=== PATIENT | female | born 1990 ===

== ENCOUNTER 2016-06-24 19:11 | Emergency (ER) | payer MEDICAID ==
[2016-06-24 19:11] VITALS: BMI 36.1
[2016-06-24 19:37] VITALS: TEMP 99.5; O2SAT 100
--- NOTE | 2016-06-24 20:24 | ED PDOC ---
Arrival/HPI - General Chief Complaint: Syncope Time Seen by Provider: 06/24/16 19:53 Historian: Patient - History of Present Illness Narrative History of Present Illness (Text): 06/24/16 20:15 A 25 year old female with , who is 3 months , presents to the emergency department complaining of a brief syncopal episode prior to arrival. Patient states she felt faint while sitting on a bench with her friends. Friend reports patient leaned against her shoulder and loss consciousness for only a few seconds. Once patient regained consciousness she ate a banana and felt "100 % better". Patient presented to the emergency room to get checked out. Patient denies any fever, chills, nausea, vomiting, diarrhea, abdominal pain, urinary symptoms, vaginal discharge, vaginal bleeding, chest pain, shortness of breath or any other complaints. Time/Duration: Prior to Arrival Symptom Course: Resolved Quality: Other Context: Other Past Medical History - Provider Review Nursing Documentation Reviewed: Yes - Infectious Disease Hx of Infectious Diseases: None - Reproductive Menopause: No - Cardiac Hx Cardiac Disorders: No - Genitourinary/Gynecological Other/Comment: PCOS - Psychiatric Hx Anxiety: Yes Hx Substance Use: No - Anesthesia Hx Anesthesia: No Hx Anesthesia Reactions: No Hx Malignant Hyperthermia: No Family/Social History - Physician Review Nursing Documentation Reviewed: Yes Family/Social History: No Known Family HX Smoking Status: Never Smoked Hx Alcohol Use: No Hx Substance Use: No Allergies/Home Meds Allergies/Adverse Reactions: Allergies No Known Allergies Allergy (Verified 06/24/16 19:37) Home Medications: Home Meds Medication Instructions Recorded Confirmed No Known Home Med 06/24/16 06/24/16 Review of Systems - Physician Review All systems were reviewed & negative as marked: Yes - Review of Systems Constitutional: absent: Fevers, Night Sweats Respiratory: absent: SOB Cardiovascular: Syncope. absent: Chest Pain Gastrointestinal: absent: Abdominal Pain, Diarrhea, Nausea, Vomiting Genitourinary Female: absent: Dysuria, Frequency, Hematuria, Urine Output Changes, Vaginal Bleeding, Vaginal Discharge Physical Exam Vital Signs Reviewed: Yes Vital Signs Temp Pulse Resp BP Pulse Ox 06/24/16 21:23 84 18 119/61 100 06/24/16 19:32 99.5 F 96 H 16 117/80 100 Temperature: Afebrile Blood Pressure: Normal Pulse: Tachycardic Respiratory Rate: Normal Appearance: Positive for: Well-Appearing, Non-Toxic, Comfortable Pain Distress: None Mental Status: Positive for: Alert and Oriented X 3 Finger Stick Blood Glucose: 128 - Systems Exam Head: Present: Atraumatic, Normocephalic Pupils: Present: PERRL Extroacular Muscles: Present: EOMI Conjunctiva: Present: Normal Mouth: Present: Moist Mucous Membranes Pharnyx: Present: Normal. No: ERYTHEMA, EXUDATE Neck: Present: Normal Range of Motion Respiratory/Chest: Present: Clear to Auscultation, Good Air Exchange. No: Respiratory Distress, Accessory Muscle Use Cardiovascular: Present: Regular Rate and Rhythm, Normal S1, S2. No: Murmurs Abdomen: Present: Normal Bowel Sounds. No: Tenderness, Distention, Peritoneal Signs Back: Present: Normal Inspection Upper Extremity: Present: Normal Inspection, NORMAL PULSES. No: Cyanosis, Edema Lower Extremity: Present: Normal Inspection, NORMAL PULSES. No: Edema, CALF TENDERNESS Neurological: Present: GCS=15, CN II-XII Intact, Speech Normal, Motor Func Grossly Intact, Normal Sensory Function, Normal Cerebellar Funct Skin: Present: Warm, Dry, Normal Color. No: Rashes Psychiatric: Present: Alert, Oriented x 3, Normal Insight, Normal Concentration Medical Decision Making ED Course and Treatment: 06/24/16 20:14 Impression: A 25 year old female presented after brief syncopal episode. Symptoms resolved immediately, patient is asymptomatic and denies any complaints. Plan: -- EKG -- Labs -- Reassess and disposition Prior Visits: Notes and results from previous visits were reviewed. Patient last seen in the ED on 05/06/16 for abdominal pain and threatened . Progress Notes: EKG shows NSR at 83 BPM with normal intervals, normal EKG. Interpreted by me. 06/24/16 22:40 On re-evaluation, the patient feels better and is in no acute distress. I have discussed the results and plan with the patient, who expresses understanding. Patient in agreement with plan to discharged home. Patient is stable for discharge. Patient was instructed to follow up with physician/clinic in 1-2 days or return if symptoms worsen or new concerning symptoms arise. - Lab Interpretations Lab Results: 06/24/16 20:23 06/24/16 20:23 Lab Results 06/24/16 20:23: WBC 10.4 D, RBC 4.96, Hgb 13.0, Hct 38.4, MCV 77.4 L, MCH 26.2 , MCHC 33.9, RDW 14.2, Plt Count 368, MPV 9.0 06/24/16 20:23: Sodium 135, Potassium 3.8, Chloride 98, Carbon Dioxide 24, Anion Gap 17, BUN 9, Creatinine 0.4 L, Est GFR ( Amer) > 60, Est GFR (Non -Af Amer) > 60, Random Glucose 72, Calcium 9.1, Total Bilirubin 0.5, AST 21, ALT 33, Alkaline Phosphatase 53, Lactate Dehydrogenase 471, Total Creatine Kinase 25 L, Troponin I < 0.01, Total Protein 7.3, Albumin 3.8, Globulin 3.4, Albumin/Globulin Ratio 1.1 I have reviewed the lab results: Yes - Scribe Statement The provider has reviewed the documentation as recorded by the Consueloibmeche Ross Provider Scribe Attestation: All medical record entries made by the Scribe were at my direction and personally dictated by me. I have reviewed the chart and agree that the record accurately reflects my personal performance of the history, physical exam, medical decision making, and the department course for this patient. I have also personally directed, reviewed, and agree with the discharge instructions and disposition. Disposition/Present on Arrival - Present on Arrival Any Indicators Present on Arrival: No History of DVT/PE: No History of Uncontrolled Diabetes: No Urinary Catheter: No History of Decub. Ulcer: No History Surgical Site Infection Following: None - Disposition Have Diagnosis and Disposition been Completed?: Yes Diagnosis: Vaso vagal episode Disposition: HOME/ ROUTINE Disposition Time: 22:40 Patient Plan: Discharge Patient Problems: Current Active Problems Problem Status Onset Vaso vagal episode Acute Condition: STABLE Discharge Instructions (ExitCare): Syncope (ED) Additional Instructions: Maintain proper diet/proper rest/no strenuous physical activity/follow up with your doctor this week Forms: WORK NOTE
[2016-06-24 20:34] LABS: HEMATOCRIT 38.4 % (36.0-48.0); MEAN CELL VOLUME 77.4 fL (80.0-105.0); MEAN CORPUSCULAR HEMOGLOBIN 26.2 pg (25.0-35.0); MEAN CORPUSCULAR HGB CONC 33.9 g/dl (31.0-37.0); RED CELL DISTRIBUTION WIDTH 14.2 % (11.5-14.5); WHITE BLOOD COUNT 10.4 10^3/ul (4.5-11.0)
[2016-06-24 20:46] LABS: ALB/GLOB RATIO 1.1 (1.1-1.8); ALKALINE PHOSPHATASE 53 U/L (38-133); ALT/SGPT 33 U/L (7-56); AST/SGOT 21 U/L (15-39); BILIRUBIN,TOTAL 0.5 mg/dL (0.2-1.3); BLOOD UREA NITROGEN 9 mg/dL (7-21); CALCIUM 9.1 mg/dL (8.4-10.5); CARBON DIOXIDE 24 mmol/L (21-33); CHLORIDE 98 mmol/L (98-107); GFR AFRICAN-AMERICAN > 60; GLUCOSE,RANDOM 72 mg/dL (70-110); POTASSIUM 3.8 mmol/L (3.6-5.0); SODIUM 135 mmol/L (132-148); TOTAL PROTEIN 7.3 g/dL (5.8-8.3)
[2016-06-24 20:58] LABS: TROPONIN I < 0.01 ng/mL
[2016-06-24 21:27] VITALS: BP 119/61; PULSE 84; RESP 18
--- NOTE | 2016-06-25 21:51 | CARD ---
APPROVED REPORT EKG Measurement Heart [id number] <Conclusion> Normal sinus rhythm Normal ECG
== END 2016-06-24 23:10 | disposition home or self-care (01) ==
LOC: ED 19:11
DX: O26.891 Other specified pregnancy related conditions, first trimester (principal); Z3A.12 12 weeks gestation of pregnancy; R55 Syncope and collapse

== ENCOUNTER 2016-08-05 08:55 | Emergency (ER) | payer MEDICAID ==
[2016-08-05 08:56] VITALS: BMI 36.1
[2016-08-05 09:17] VITALS: TEMP 98; O2SAT 99
[2016-08-05] MEDS ORDERED: Sodium Chloride 0.9% 1,000 ML IV STA (09:27)
--- NOTE | 2016-08-05 09:34 | ED PDOC ---
Arrival/HPI - General Historian: Patient - General Chief Complaint: Female Genitourinary Time Seen by Provider: 08/05/16 09:20 - History of Present Illness Narrative History of Present Illness (Text): 08/05/16 09:28 25yo female present to ED for hematuria. states her LMP was April 06. She notes that she noticed a single blood clot with her urination last night and noticed 3today. states she is not bleeding. She sees OB in [place]. She denies abdominal pain, nausea, vomiting, diarrhea, constipation, dysuria, fever, chills. (Cristofer Larkin A) Past Medical History - Provider Review Nursing Documentation Reviewed: Yes - Infectious Disease Hx of Infectious Diseases: None - Cardiac Hx Cardiac Disorders: No - Genitourinary/Gynecological Hx Genitourinary Disorders: No Other/Comment: PCOS - Psychiatric Hx Psychophysiologic Disorder: Yes Hx Anxiety: Yes Hx Substance Use: No - Anesthesia Hx Anesthesia: No Hx Anesthesia Reactions: No Hx Malignant Hyperthermia: No Family/Social History - Physician Review Nursing Documentation Reviewed: Yes Family/Social History: Unknown Family HX Smoking Status: Never Smoked Hx Alcohol Use: No Hx Substance Use: No Allergies/Home Meds Allergies/Adverse Reactions: Allergies No Known Allergies Allergy (Verified 08/05/16 09:17) Home Medications: Home Meds Medication Instructions Recorded Confirmed Vit No.126/Iron/Folic 1 each PO DAILY 08/05/16 08/05/16 [Classic Tablet] Review of Systems - Physician Review All systems were reviewed & negative as marked: Yes - Review of Systems Constitutional: Normal Eyes: Normal ENT: Normal Respiratory: Normal Cardiovascular: Normal Gastrointestinal: Normal. absent: Abdominal Pain, Constipation, Diarrhea, Hematemesis Genitourinary Female: Hematuria. absent: Dysuria, Frequency, Vaginal Bleeding Musculoskeletal: Normal Skin: Normal Neurological: Normal Endocrine: Normal Hemo/Lymphatic: Normal Psychiatric: Normal Physical Exam Vital Signs Reviewed: Yes Temperature: Afebrile Blood Pressure: Normal Pulse: Regular Respiratory Rate: Normal Appearance: Positive for: Well-Appearing, Non-Toxic, Comfortable Pain Distress: None Mental Status: Positive for: Alert and Oriented X 3 - Systems Exam Head: Present: Atraumatic, Normocephalic Pupils: Present: PERRL Extroacular Muscles: Present: EOMI Conjunctiva: Present: Normal Mouth: Present: Moist Mucous Membranes Neck: Present: Normal Range of Motion Respiratory/Chest: Present: Clear to Auscultation, Good Air Exchange. No: Respiratory Distress, Accessory Muscle Use Cardiovascular: Present: Regular Rate and Rhythm, Normal S1, S2. No: Murmurs Abdomen: Present: Normal Bowel Sounds. No: Tenderness, Distention, Peritoneal Signs, Rebound, Guarding, McBurney's Point Tender, Rovsing's Sign Present Back: Present: Normal Inspection Upper Extremity: Present: Normal Inspection. No: Cyanosis, Edema Lower Extremity: Present: Normal Inspection. No: Edema Neurological: Present: GCS=15, CN II-XII Intact, Speech Normal Skin: Present: Warm, Dry, Normal Color. No: Rashes Psychiatric: Present: Alert, Oriented x 3, Normal Insight, Normal Concentration Vital Signs Temp Pulse Resp BP Pulse Ox 08/05/16 12:30 71 18 114/75 99 08/05/16 11:29 75 18 112/79 99 08/05/16 09:14 98.0 F 78 19 114/81 99 Medical Decision Making ED Course and Treatment: I was available for consultation during PA evaluation. The chart was reviewed by me, and I agree with disposition. The documented history was done by the physician sieve grader tender. The documented physical exam was done by the physician sieve grader tender. The documented procedures were done by the physician sieve grader tender. (Jesse Stoddard) 08/05/16 20:55 PT was comfortable in ED. She denied vaginal bleeding. Had UTI and was treated with Macrobid. age US - IUP at 18wks 6days Result was DW the pt. She was referred to her OB. TRT ED for any new or worsening symptoms. (Cristofer Lakrin) - Lab Interpretations Lab Results: 08/05/16 09:50 08/05/16 09:50 Lab Results 08/05/16 09:50: Beta HCG, Quant 54764.00 H 08/05/16 09:50: Sodium 138, Potassium 3.5 L, Chloride 105, Carbon Dioxide 24, Anion Gap 13, BUN 9, Creatinine 0.4 L, Est GFR ( Amer) > 60, Est GFR (Non -Af Amer) > 60, Random Glucose 84, Calcium 8.9, Total Bilirubin 0.3, AST 20, ALT 25, Alkaline Phosphatase 58, Total Protein 6.7, Albumin 3.4, Globulin 3.2, Albumin/Globulin Ratio 1.1 08/05/16 09:50: Urine Color Yellow, Urine Appearance Sl cloudy, Urine pH 6.5, Ur Specific [place] 1.020, Urine Protein Negative, Urine Glucose (UA) Negative, Urine Ketones Negative, Urine Blood Negative, Urine Nitrate Positive H, Urine Bilirubin Negative, Urine Urobilinogen 0.2, Ur Leukocyte Esterase Negative, Urine RBC Negative, Urine WBC 1 - 3, Ur Epithelial Cells 3 - 4, Urine Bacteria Many, Urine HCG, Qual Positive 08/05/16 09:50: PT 10.2, INR 0.94, APTT 30.6 08/05/16 09:50: WBC 8.4, RBC 4.43, Hgb 11.7 L, Hct 35.4 L, MCV 79.9 L, MCH 26.4 , MCHC 33.1, RDW 13.9, Plt Count 343, MPV 8.9, Gran % 58.5, Lymph % (Auto) 34.9 , [place] % (Auto) 5.5, Eos % (Auto) 1.0 L, Baso % (Auto) 0.1, Gran # 4.89, Lymph # 2.9, [place] # 0.5, Eos # 0.1, Baso # 0.01 - RAD Interpretation Radiology Orders: 08/05/16 10:25 AGE [US] Stat - Medication Orders Current Medication Orders: Discontinued Medications Sodium Chloride (Sodium Chloride 0.9%) 1,000 mls @ 999 mls/hr IV .Q1H1M STA Stop: 08/05/16 10:27 Last Admin: 08/05/16 10:04 Dose: 999 mls/hr Nitrofurantoin Macrocrystals (Macrobid) 100 mg PO ONCE STA Stop: 08/05/16 12:33 Disposition/Present on Arrival - Present on Arrival Any Indicators Present on Arrival: No History of DVT/PE: No History of Uncontrolled Diabetes: No Urinary Catheter: No History of Decub. Ulcer: No History Surgical Site Infection Following: None - Disposition Have Diagnosis and Disposition been Completed?: Yes Disposition Time: 12:35 Patient Plan: Discharge - Disposition Diagnosis: UTI (urinary tract infection) Disposition: HOME/ ROUTINE Condition: STABLE Discharge Instructions (ExitCare): Urinary Tract Infection in Women (ED), Return to Work Instructions (ED) Additional Instructions: Follow up with your OB Return to ED for any new or worsening symptoms Prescriptions: Nitrofurantoin Macrocrystals [Macrobid] 100 mg PO BID #14 cap Referrals: Gilberto Garcia, [Primary Care Provider] - Follow up with primary Forms: WORK NOTE
[2016-08-05 09:59] LABS: ADD MANUAL DIFF? NO
[2016-08-05 10:06] LABS: BASO # 0.01 K/mm3 (0.0-2.0); BASO % 0.1 % (0.0-3.0); EOS # 0.1 (0.0-0.7); GRAN # 4.89 (1.4-6.5); GRAN % 58.5 % (50.0-68.0); HEMATOCRIT 35.4 % (36.0-48.0); LYMPH # 2.9 (1.2-3.4); LYMPH % 34.9 % (22.0-35.0); MEAN CELL VOLUME 79.9 fL (80.0-105.0); MEAN CORPUSCULAR HEMOGLOBIN 26.4 pg (25.0-35.0); MEAN CORPUSCULAR HGB CONC 33.1 g/dl (31.0-37.0); MEAN PLATELET VOLUME 8.9 fl (7.0-11.0); MONO # 0.5 (0.1-0.6); MONO % 5.5 % (1.0-6.0); PLATELET COUNT 343 10^3/uL (120.0-450.0); RED CELL DISTRIBUTION WIDTH 13.9 % (11.5-14.5); WHITE BLOOD COUNT 8.4 10^3/ul (4.5-11.0)
[2016-08-05 10:08] LABS: PH,URINE 6.5 (4.7-8.0); URINE BILIRUBIN NEGATIVE (NEGATIVE); URINE BLOOD NEGATIVE (NEGATIVE); URINE GLUCOSE (UA) NEGATIVE (NEGATIVE); URINE KETONE NEGATIVE (NEGATIVE); URINE LEUKOCYTE ESTERASE NEGATIVE Leu/uL (NEGATIVE); URINE PROTEIN NEGATIVE mg/dL (<30 mg/dL); URINE UROBILINOGEN 0.2 E.U./dL (<1 E.U./dL)
[2016-08-05 10:10] LABS: URINE APPEARANCE SL CLOUDY (CLEAR); URINE COLOR YELLOW (YELLOW)
[2016-08-05 10:13] LABS: ALB/GLOB RATIO 1.1 (1.1-1.8); ALKALINE PHOSPHATASE 58 U/L (38-133); ALT/SGPT 25 U/L (7-56); AST/SGOT 20 U/L (15-39); BILIRUBIN,TOTAL 0.3 mg/dL (0.2-1.3); BLOOD UREA NITROGEN 9 mg/dL (7-21); CALCIUM 8.9 mg/dL (8.4-10.5); CARBON DIOXIDE 24 mmol/L (21-33); CHLORIDE 105 mmol/L (98-107); GFR AFRICAN-AMERICAN > 60; GLUCOSE,RANDOM 84 mg/dL (70-110); POTASSIUM 3.5 mmol/L (3.6-5.0); SODIUM 138 mmol/L (132-148); TOTAL PROTEIN 6.7 g/dL (5.8-8.3); URINE BACTERIA MANY (NEG); URINE RBC NEGATIVE /hpf (0-2)
[2016-08-05 10:14] LABS: INR 0.94 (0.93-1.08); PARTIAL THROMBOPLASTIN TIME 30.6 Seconds (23.7-30.8)
[2016-08-05 11:30] VITALS: RESP 18
--- NOTE | 2016-08-05 12:27 | US ---
PROCEDURE: OB Pelvic Ultrasound HISTORY: vaginal bleeding COMPARISON: None available. FINDINGS: UTERUS: There is a single intrauterine fetus in cephalic presentation. BPD: 4.1 cm corresponds to 18 weeks and 4 days of gestational age. HC cm corresponds to 18 weeks and 1 day of gestational age. AC: 13.3 cm corresponds to 18 weeks and 5 days of gestational age. FL: 2.84 CM corresponds to 18 weeks and 5 days of gestational age. Heart rate: 142 bpm. age (Ultrasound estimated): 18 weeks and 4 days Ceci-gestational hemorrhage: None. Date of delivery (Ultrasound estimated) : 01/02/2017 Placenta is anterior. CERVIX: Long and closed. Measures 4.5 cm. No cervical abnormality seen. RIGHT OVARY: Not visualized. LEFT OVARY: Not visualized. FREE FLUID: None. OTHER FINDINGS: None. IMPRESSION: Single live intrauterine fetus in cephalic presentation with mean gestational age of 18 weeks and 4 days. Estimated date of delivery by ultrasound is 01/02/2017. The ultrasound dates correspond with the clinical dates. Placenta is anterior. Cervix is long and closed.
[2016-08-05 12:31] VITALS: BP 114/75; PULSE 71
== END 2016-08-05 12:50 | disposition home or self-care (01) ==
LOC: ED 08:55
DX: O23.42 Unspecified infection of urinary tract in pregnancy, second trimester (principal); Z3A.18 18 weeks gestation of pregnancy
CPT/HCPCS: 76815; 80053; 81001; 84702; 84703; 85025; 85610; 85730; 87086; 99285; J7040